=== PATIENT | female | born 1990 | race Caucasian/White ===

== ENCOUNTER 2024-04-26 18:17 | Emergency (ER) | payer OTHER, SELFPAY ==
[2024-04-26 18:42] VITALS: BMI 19.4
[2024-04-26 18:44] VITALS: BP 100/72
[2024-04-26 19:00] VITALS: BP 99/68
--- NOTE | 2024-04-26 19:56 | ED.GENMED ---
History of Present Illness
General
Chief Complaint: Chest Pain
Source: patient
Exam Limitations: none
Time Seen by Provider: 04/26/24 19:27
History of Present Illness
History of Present Illness:
This is a 34 year old female that comes in with multiple complaints. States that for the past 8=10 days she had had chest pain like someone sitting on her chest. States that she gets pain under her ribs pain in her shoulder blades. Patient behind
the right knee and the right arm. States that she has pain with deep breathing and a headache with nausea. States that she went to a walk in and she was told to come to the ER. Denies any fever, chills, SOB, abd pain, vomiting, diarrhea,
dizziness, urinary burning.
Past History
Past History
ED Past Medical History: None; Negative Asthma, HTN, Hypercholesterolemia or NIDDM
ED Past Surgical History: None
Social History
Tobacco: Vaping
Alcohol: None
Personal: Single
Living: with family
Review of Systems
Review of Systems
All Other Systems: ROS reviewed and negative except as documented in HPI and ROS
Constitutional: Reports no symptoms; Denies fever or chills
EENT: Reports no symptoms
Respiratory: Reports other (Pain with deep breathing); Denies cough or trouble breathing
Cardiac: Reports chest pain
ABD/GI: Reports nausea; Denies abdominal pain, vomiting or diarrhea
: Reports no symptoms; Denies dysuria, frequency or urgency
Musculoskeletal: Reports no symptoms
Skin: Reports no symptoms
Neurological: Reports headache; Denies dizzy
Psychiatric: Reports no symptoms
Phy Exam
General Physical Exam
General Presentation: well appearing and no apparent distress
General age: appears stated age
General Skin: warm and dry
General Habitus: normal
General Mental: alert
General Hydration: appears well hydrated
ENT Exam
ENT Exam: TM's normal, pharynx normal and neck supple
Eye Exam
Eye Exam: EOMI
Cardiovascular Exam
Cardiovascular Exam: regular rate/rhythm, no edema, no murmur and normal peripheral pulses
Pulmonary Exam
Pulmonary Exam: lungs clear, no respiratory distress, no rales, chest non tender, no crackles, no rhonchi, no wheezing and no cough
Gastrointestinal Exam
Gastrointestinal Exam: normal bowel sounds, non tender, soft, no organomegaly, no pulsatile mass and non distended
Musculoskeletal Exam
Musculoskeletal Exam: full ROM and no edema
Skin Exam
Skin Exam: normal color, warm/dry, no rash and no petechia
Psychiatric Exam
Psychiatric Exam: normal mood/affect
Scores
Heart Score for Chest Pain Patients
STEMI patient?: No
History: Slightly or Non-Suspicious
ECG: Normal
Age: </= 45 years
Risk Factors: No Risk Factors
Troponin: </= Normal Limit
Heart Score for Chest Pain Patients: 0
Heart Score Risk: 2.5% MACE over next 6 weeks
Course
Orders/Labs/Results
Orders:
Orders
04/26/24 18:18
Electrocardiogram (*1) Urgent
Reason for Study: Chest Pain
EKG- Treatment ONCE
04/26/24 19:54
Ketorolac [Toradol] 30 mg IV NOW STA
US Legs, Right [US Periph Venous LOWER Ext RT] Urgent
Comment:
Reason For Exam: Pain behind right knee
04/26/24 19:55
Test Result ONCE
CR Chest - 2 Views Urgent
Comment:
Reason For Exam: Chest pain
04/26/24 21:14
COVID-19 Antigen Urgent
Source: Nasal Swab
Complete Blood Count/With Diff Urgent
Comprehensive Metabolic Panel Urgent
D-Dimer Urgent
HCG, Serum Qualitative Screen Urgent
Troponin I Urgent
04/26/24 21:16
Ketorolac [Toradol] 15 mg .ROUTE .STK-MED ONE
04/26/24 21:25
0.9% Sodium Chloride 500 ml [Nss] 1,000 ml IV ONCE
04/26/24 22:12
CT Chest Pe Study Urgent
Comment:
Reason For Exam: Elevated D-dimer , Chest pain
Abnormal Lab Results
04/26/24
21:14
MCH 31.4 H pg
(27.0-31.0)
MPV 10.9 H fL
(7.4-10.4)
Lymphocytes % 19.9 L %
(20.5-51.1)
D-Dimer 0.96 H ug/mlFEU
(0.00-0.50)
04/26/24 21:14
04/26/24 21:14
D-dimer elevation Otherwise labs normal. HCG negative. Troponin <0.012
Vital Signs
Initial and Last Documented VS:
Initial Vital Signs
Pulse Ox
98
04/26/24 18:42
Last Documented Vital Signs
Pulse Resp BP Pulse Ox
66 19 103/57 97
04/26/24 22:00 04/26/24 22:00 04/26/24 22:00 04/26/24 22:00
MDM/Problems Addressed
Differential Diagnosis Includes:
PE, Coronary syndrome, Fibromyalgia
MDM/Problems Addressed:
This is a 34 year old female that comes in with multiple complaints. States that she has had chest pain, Pain with deep breathing, right leg pain , right arm pain and that this has been going on for 8-10 days.
Will check. labs, Chest x-ray
Patient D-dimer is elevated. Will get CT scan.
Back into see patient. Explained that her blood work is normal. Her chest X-ray and CT of the chest is normal. Her Troponin is normal. Will have patient follow up with the family doctor. Patient to return with any concerns.
Chronic conditions affecting care:
NA
Acute Exacerbation and/or Progression of Chronic Illness:
NA
*Radiology
Radiology exam reviewed: radiology read reviewed (Chest-NO acute cardiopulmonary process US- No evidence of deep venous thrombosis in the right lower extremity as described above. CT chest-NO evidence of pulmonary embolism. No significant acute
abnormality identified in the chest, as described above. Small hiatal hernia. Lg simple splenic cyst)
*Pulse Oximetry
Patient hypoxic: no
*EKG
Interpreted by ED Provider?: Yes
Heart Rate: 85
Rate: normal
Rhythm: sinus
[place]: right axis deviation
Interval: normal interval
QRS Pattern: normal QRS
Ischemia: no ischemia
*Circulation Clerk Interpretation
Rate: normal
Heart Rate: 89
Rhythm: sinus
*Critical Care Note
Total Time (30-74mins, 75-104mins- exclusive of procedures): Not Applicable
ED Attending Note
-
Portions of this chart may have been created with voice recognition software.� Occasional wrong word or��sound alike� substitutions may have occurred due to the inherent limitations of voice recognition software.
Discharge Plan
Departure
Patient Disposition: Home (Routine Discharge)
Date of Disposition: 04/26/24
Time of Disposition: 23:24
Patient with high blood pressure during this ER visit?: No
Condition: Good
Covid-19: Not Applicable
Discharge Problem:
Body aches
Instructions: Acid reflux and GERD in adults
Prescriptions:
New
pantoprazole [Protonix] 40 mg tablet,delayed release (DR/EC)
40 mg PO DAILY Qty: 30 0RF
Referrals:
Jerrod Solis, DO [Family Provider] - Follow up in 2-3 days
Activity Restrictions/Additional Instructions:
As discussed, your blood work is all normal. Your chest X-ray and CT of the chest is normal. Your ECG was normal. Please increase your water intake to 8-8oz glasses daily. Follow up with the family doctor for recheck. You have also been given a
prescription for Protonix to help with any reflux. IF YOU HAVE ANY OTHER CONCERNS PLEASE RETURN TO THE EMERGENCY ROOM.
Interventions
Interventions:
*Risk Screen - Suicide Last Done: 04/26/24 18:42
*General Assessment Last Done: 04/26/24 18:42
*Neglect/Abuse Screening Last Done: 04/26/24 18:42
ED- Fall Risk Assessment Last Done: 04/26/24 18:42
*ED COVID-19 Vaccine History Last Done: 04/26/24 18:42
ED- Cardiac Assessment Last Done: 04/26/24 18:42
Discharge Date and Time
Print Language: SAMI
[2024-04-26 20:00] VITALS: BP 104/68
[2024-04-26] MEDS: TORADOL 30 MG IV (21:18)
[2024-04-26] MEDS: NSS 1000 IV (21:26)
[2024-04-26 21:28] VITALS: BP 107/64
[2024-04-26 21:30] VITALS: BP 79/69
[2024-04-26 21:33] LABS: % Basophils 0.2 % (0-2); % Eosinophils 0.7 % (0-6); % Immature Granulocytes 0.2 % (0-0.5); % Lymphocytes 19.9 % (20.5-51.1); % Monocytes 5.5 % (1.7-9.3); % Neutrophils 73.5 % (42.2-75.2); Absolute Lymphocytes 1.2 10^3/uL (1.2-3.4); Absolute Monocytes 0.3 10^3/uL (0.1-0.6); Absolute Neutrophils 4.4 10^3/uL (1.4-6.5); Hematocrit 37.7 % (37.0-47.0); Hemoglobin 13.2 g/dL (12.0-16.0); Mean Corpuscular Hgb 31.4 pg (27.0-31.0); Mean Corpuscular Volume 89.5 fL (81.0-99.0); Mean Platelet Volume 10.9 fL (7.4-10.4); Nucleated Red Blood Cells % 0 %; Platelet Count 168 10^3/uL (130-400); Red Blood Cell Count 4.21 10^6/uL (4.20-5.40)
[2024-04-26 21:45] LABS: HCG, Serum Qualitative Screen Negative
[2024-04-26 21:48] LABS: ALT (SGPT) 18 U/L (0-35); AST (SGOT) 24 U/L (14-36); Albumin 4.4 g/dl (3.5-5.0); Alkaline Phosphatase 65 U/L (38-126); Blood Urea Nitrogen 13 mg/dl (7-17); Calcium 9.1 mg/dl (8.4-10.2); Carbon Dioxide 23 mmol/L (22-30); Chloride 100 mmol/L (98-107); Estimated Creatinine Clearance 95 ml/min; Glucose 84 mg/dl (70-99); Sodium 137 mmol/L (135-145); Total Bilirubin 0.8 mg/dl (0.2-1.3); Total Protein 7.1 g/dl (6.3-8.2); eGFR > 60.00
[2024-04-26 21:49] LABS: D-Dimer 0.96 ug/mlFEU (0.00-0.50)
[2024-04-26 21:55] LABS: COVID-19 Antigen Negative (Negative)
[2024-04-26 22:00] VITALS: BP 103/57
[2024-04-26 22:02] LABS: Troponin I < 0.012 ng/ml
[2024-04-26] MEDS: PROTONIX IV 40 MG IV (23:43)
== END 2024-04-27 00:05 | disposition home or self-care (01) ==
LOC: EMR 18:17
PROVIDERS: Clinical Nurse Specialist Family Health; EMERGENCY PHYSICIAN Emergency Medicine; FAMILY PHYSICIAN Family Medicine
DX: M79.18 Myalgia, other site (principal); M79.604 Pain in right leg; M79.601 Pain in right arm; F17.290 Nicotine dependence, other tobacco product, uncomplicated
CPT/HCPCS: 99284; 96374; 96375; 96361; 71046; 71275; 80053; 84484; 84703; 85025; 85379; 87811; 93005; 93971; Q9967

== ENCOUNTER → 2025-02-01 13:25 | Outpatient (REF) | payer OTHER, SELFPAY | LOC: HWRAD 13:25 | PROVIDERS: ATTENDING PHYSICIAN Hospitalist | DX: R07.9 Chest pain, unspecified (principal) | CPT/HCPCS: 71250 ==

== ENCOUNTER → 2025-05-31 15:30 | Outpatient (REF) | payer OTHER, SELFPAY | LOC: HWRAD 15:30 | PROVIDERS: ATTENDING PHYSICIAN Hospitalist | DX: M79.661 Pain in right lower leg (principal) | CPT/HCPCS: 76882 ==